=== PATIENT | male | born 1970 | race Caucasian/White ===

== ENCOUNTER 2017-12-19 17:20 | Emergency (ER) | payer OTHER ==
--- NOTE | 2017-12-19 17:21 | PDOC ---
History of Present Illness - General History Source: Patient Exam Limitations: No Limitations - History of Present Illness Initial Comments: 12/19/17 18:10 The patient is a 47 year old male with no significant PMH who presents to the emergency department with diarrhea and right lower quadrant pain today. The patient went to a work trip in [place] for approximately 1 week and came back yesterday. The patient states he was in cities and was eating vegetarian meals at various restaurants. The patient reports he was well through last night then reports the diarrhea began first this morning and had approximately eight loose , watery episodes throughout the day. The patient endorses associated intermittent abdominal cramping. The patient states his abdominal pain is localized in the right lower quadrant and describes it as a sharp pain. The patient states he has been able to tolerate PO intake since the onset of his symptoms. Patient reports mild nausea, but denies any fever, blood in the stool, vomiting , or constipation. Denies chest pain, shortness of breath, headache and dizziness. Denies dysuria, frequency, urgency and hematuria. Allergies: NKA Past surgical history: None reported. Social history: Drinks alcohol 2-3 drinks, approximately 4 times a week. No reported drug or cigarette use. <Stacie Burton - Last Filed: 12/19/17 18:49> <Abhijit Hunter - Last Filed: 12/19/17 18:55> - General Chief Complaint: Pain Stated Complaint: RLQ PAIN Time Seen by Provider: 12/19/17 17:21 Past History <Stacie Burton - Last Filed: 12/19/17 18:49> <Abhijit Hunter - Last Filed: 12/19/17 18:55> - Past Medical History Allergies/Adverse Reactions: Allergies Allergy/AdvReac Type Severity Reaction Status Date / Time No Known Allergies Allergy Verified 12/19/17 17:30 Home Medications: Ambulatory Orders NK [No Known Home Medication] 12/19/17 Review of Systems - Review of Systems Able to Perform ROS?: Yes Comments:: 12/19/17 18:01 CONSTITUTIONAL: Absent: Fever, Chills, Diaphoresis, Generalized Weakness, Malaise, Loss of Appetite HEENT: Absent: Rhinorrhea, Nasal Congestion, Throat Pain, Throat Swelling, Difficulty Swallowing, Mouth Swelling, Ear Pain, Eye Pain, Visual Changes CARDIOVASCULAR: Absent: Chest Pain, Syncope, Palpitations, Irregular Heart Rate, Lightheadedness , Peripheral Edema RESPIRATORY: Absent: Cough, Shortness of Breath, SOB with Exertion, Orthopnea, Wheezing, Stridor, Hemoptysis GASTROINTESTINAL: Absent: Abdominal Distension, Vomiting, Constipation, Melena, Hematochezia Present: Right lower quadrant pain. Diarrhea. Mild nausea. GENITOURINARY: Absent: Dysuria, Frequency, Urgency, Hesitancy, Flank Pain, Genital Pain MUSCULOSKELETAL: Absent: Myalgia, Arthralgia, Joint Swelling, Back pain, Neck Pain SKIN: Absent: Rash, Itching, Pallor HEMEATOLOGIC/IMMUNOLOGIC: Absent: Easy Bleeding, Easy Bruising, Lymphadenopathy, Frequent infections ENDOCRINE: Absent: Unexplained Weight Gain, Unexplained Weight Loss, Heat Intolerance, Cold Intolerance NEUROLOGIC: Absent: Headache, Focal Weakness, Paresthesias, Vertigo, Lightheadedness, Unsteady Gait, Seizure, Mental Status Changes, Incontinence PSYCHIATRIC: Absent: Anxiety, Depression <Stacie Burton - Last Filed: 12/19/17 18:49> *Physical Exam - Vital Signs Last Vital Signs Temp Pulse Resp BP Pulse Ox 99.4 F 101 H 18 124/80 98 12/19/17 17:20 12/19/17 17:20 12/19/17 17:20 12/19/17 17:20 12/19/17 17:20 - Physical Exam Comments: 12/19/17 18:08 GENERAL: The patient is awake, alert, and fully oriented, in no acute distress. HEAD: Normal with no signs of trauma. EYES: Pupils equal, round and reactive to light, extraocular movements intact, sclera anicteric, conjunctiva clear. ENT: Ears normal, nares patent, oropharynx clear without exudates. Moist mucous membranes. NECK: Normal range of motion, supple without lymphadenopathy, JVD, or masses. LUNGS: Breath sounds equal, clear to auscultation bilaterally. No wheezes, and no crackles. HEART: Regular rate and rhythm, normal S1 and S2 without murmur, rub or gallop. ABDOMEN: (+) Focal tenderness at McBurney's point. Negative Hagen's sign. Soft , normoactive bowel sounds. No guarding, no rebound. No masses. EXTREMITIES: Normal range of motion, no edema. No clubbing or cyanosis. No cords , erythema, or tenderness. NEUROLOGICAL: Cranial nerves II through XII grossly intact. Normal speech, normal gait. PSYCH: Normal mood, normal affect. SKIN: Warm, Dry, normal turgor, no rashes or lesions noted. <Stacie Burton - Last Filed: 12/19/17 18:49> ED Treatment Course - LABORATORY CBC & Chemistry Diagram: 12/19/17 18:10 12/19/17 18:10 <Stacie Burton - Last Filed: 12/19/17 18:49> - LABORATORY CBC & Chemistry Diagram: 12/19/17 18:10 12/19/17 18:10 <Abhijit Hunter - Last Filed: 12/19/17 18:55> Medical Decision Making - Medical Decision Making 12/19/17 18:52 47-year-old man with no significant past medical history presents complaining of onset this morning of frequent episodes of loose watery diarrhea without blood. He just got back from his trip to [place], and a vegetarian food which all seem to be quite healthy and fresh. He has intermittent abdominal pain, associated with cramps, the comes in waves. He went to the urgent care center where he was found to have right lower quadrant tenderness and was sent to the ED for "rule out appendicitis". On examination, the bowel sounds are active. The abdomen is soft with focal tenderness in the right lower quadrant. There is no guarding or rebound tenderness. Initial impression is that the history is quite atypical for acute appendicitis but the examination is somewhat concerning given the focal tenderness at McBurney's point. Patient will have CT scan with IV contrast. Oral contrast is not necessary. Laboratory studies reviewed: WBC is normal at 6.6. Hemoglobin is normal. Platelets are normal. Electrolytes are notable for very slight hyponatremia at 134. Patient was given IV normal saline 1 L in preparation for the IV contrast CT scan. At change of shift, 7 PM, CT scan is pending. Patient endorsed to Dr. Yaz Esposito pending CT results and reevaluation of his abdominal examination. Of note , patient has been able to take by mouth fluids all day today without vomiting. Laboratory Results - last 24 hr 12/19/17 12/19/17 18:10 18:10 WBC 6.6 RBC 4.84 Hgb 15.5 Hct 45.3 MCV 93.5 MCH 32.0 MCHC 34.2 RDW 12.1 Plt Count 176 MPV 9.0 Absolute Neuts (auto) 5.2 Neutrophils % 79.0 Lymphocytes % 8.7 Monocytes % 10.1 Eosinophils % 0.5 Basophils % 1.7 Sodium 134 L Potassium 4.8 Chloride 103 Carbon Dioxide 26 Anion Gap 5 L BUN 10 Creatinine 1.0 Creat Clearance w eGFR > 60 Random Glucose 100 Calcium 8.9 Total Bilirubin 0.7 AST 23 ALT 22 Alkaline Phosphatase 57 Total Protein 6.2 L Albumin 3.7 <Abhijit Hunter - Last Filed: 12/19/17 18:55> *DC/Admit/Observation/Transfer - Attestations Scribe Attestion: 12/19/17 18:10 Documentation prepared by Stacie Burton, acting as director of medical services for Abhijit Hunter MD. <Stacie uBrton - Last Filed: 12/19/17 18:49> - Attestations Physician Attestion: 12/19/17 18:54 The scribe's documentation has been prepared under my direction and personally reviewed by me in its entirety. I have confirmed that the note above accurately reflects all work, treatment, procedures, and medical decision- making performed by me. <Abhijit Hunter - Last Filed: 12/19/17 18:55> Diagnosis at time of Disposition: Abdominal pain Qualifiers: Abdominal location: right lower quadrant Qualified Code(s): R10.31 - Right lower quadrant pain - Discharge Dispostion Condition at time of disposition: Stable
[2017-12-19 17:36] VITALS: BP 124/80; PULSE 101; TEMP 99.4; BMI 25.0
[2017-12-19] MEDS ORDERED: SODIUM CHLORIDE 1,000 ML IV STA (18:01)
[2017-12-19 18:32] LABS: BASO % 1.7 % (0-2.0); EOS % 0.5 % (0-4.5); HEMATOCRIT 45.3 % (35.4-49); HEMOGLOBIN 15.5 GM/dl (11.7-16.9); LYMPH % 8.7 % (8-40); MCHC 34.2 g/dl (32.0-35.9); MEAN CELL VOLUME 93.5 fl (80-96); MONO % 10.1 % (3.8-10.2); PLATELET COUNT 176 K/MM3 (134-434); RBC 4.84 M/mm3 (4.00-5.60); RDW 12.1 % (11.9-15.9); WHITE BLOOD COUNT 6.6 K/mm3 (4.0-10.8)
[2017-12-19 18:38] LABS: ALBUMIN 3.7 g/dl (3.5-5.0); ALK PHOS 57 U/L (32-92); ANION GAP 5 (8-16); BILIRUBIN,TOTAL 0.7 mg/dl (0.2-1.0); BLOOD UREA NITROGEN 10 mg/dl (7-18); CALCIUM 8.9 mg/dl (8.4-10.2); CHLORIDE 103 mmol/L (98-107); CO2 26 mmol/L (22-28); GLUCOSE,RANDOM 100 mg/dl (74-106); POTASSIUM 4.8 mmol/L (3.5-5.1); SGOT/AST 23 U/L (10-42); SGPT/ALT 22 U/L (10-40); SODIUM 134 mmol/L (136-145); TOT PROT 6.2 g/dl (6.4-8.3)
--- NOTE | 2017-12-19 20:01 | PDOC ---
*Physical Exam - Vital Signs Last Vital Signs Temp Pulse Resp BP Pulse Ox 99.4 F 101 H 18 124/80 98 12/19/17 17:20 12/19/17 17:20 12/19/17 17:20 12/19/17 17:20 12/19/17 17:20 - Physical Exam HEENT: positive: Scleral Icterus (R) <Stacie Burton - Last Filed: 12/19/17 20:49> - Vital Signs Last Vital Signs Temp Pulse Resp BP Pulse Ox 99.4 F 101 H 18 124/80 98 12/19/17 17:20 12/19/17 17:20 12/19/17 17:20 12/19/17 17:20 12/19/17 17:20 <Yaz Esposito - Last Filed: 12/20/17 04:52> ED Treatment Course - LABORATORY CBC & Chemistry Diagram: 12/19/17 18:10 12/19/17 18:10 - ADDITIONAL ORDERS Additional order review: Laboratory Results 12/19/17 18:10 Sodium 134 L Potassium 4.8 Chloride 103 Carbon Dioxide 26 Anion Gap 5 L BUN 10 Creatinine 1.0 Creat Clearance w eGFR > 60 Random Glucose 100 Calcium 8.9 Total Bilirubin 0.7 AST 23 ALT 22 Alkaline Phosphatase 57 Total Protein 6.2 L Albumin 3.7 12/19/17 18:10 RBC 4.84 MCV 93.5 MCHC 34.2 RDW 12.1 MPV 9.0 Neutrophils % 79.0 Lymphocytes % 8.7 Monocytes % 10.1 Eosinophils % 0.5 Basophils % 1.7 - Medications Given in the ED: ED Medications Discontinued Medications Generic Name Dose Route Start Last Admin Trade Name Freq PRN Reason Stop Dose Admin Sodium Chloride 1,000 mls @ 1,000 mls/hr 12/19/17 18:01 12/19/17 18:20 Normal Saline - IV 12/19/17 19:00 1,000 mls/hr ASDIR STA Administration <Stacie Burton - Last Filed: 12/19/17 20:49> - LABORATORY CBC & Chemistry Diagram: 12/19/17 18:10 12/19/17 18:10 - ADDITIONAL ORDERS Additional order review: Laboratory Results 12/19/17 18:10 Sodium 134 L Potassium 4.8 Chloride 103 Carbon Dioxide 26 Anion Gap 5 L BUN 10 Creatinine 1.0 Creat Clearance w eGFR > 60 Random Glucose 100 Calcium 8.9 Total Bilirubin 0.7 AST 23 ALT 22 Alkaline Phosphatase 57 Total Protein 6.2 L Albumin 3.7 12/19/17 18:10 RBC 4.84 MCV 93.5 MCHC 34.2 RDW 12.1 MPV 9.0 Neutrophils % 79.0 Lymphocytes % 8.7 Monocytes % 10.1 Eosinophils % 0.5 Basophils % 1.7 - Medications Given in the ED: ED Medications Discontinued Medications Generic Name Dose Route Start Last Admin Trade Name Brett PRN Reason Stop Dose Admin Sodium Chloride 1,000 mls @ 1,000 mls/hr 12/19/17 18:01 12/19/17 18:20 Normal Saline - IV 12/19/17 19:00 1,000 mls/hr ASDIR STA Administration <Yaz Esposito - Last Filed: 12/20/17 04:52> Progress Note - Progress Note Progress Note: Documentation has been prepared under my direction and personally reviewed by me in its entirety. I attest that this documented accurately reflects all work, treatment, procedures and medical decision making performed by me. <Yaz Esposito - Last Filed: 12/20/17 04:52> Medical Decision Making - Medical Decision Making 12/19/17 20:50 Imaging: Abdomen and pelvis CT Reported by: Dr. Herrera Findings: The appendix is within normal limits in size. There is no periappendiceal inflammatory changes. No evidence of acute appendicitis. No free air. No obvious gallstones. There is no hydronephrosis. There is no evidence of intestinal obstruction. Urinary bladder is partially decompressed. THere are no bladder calculi. <Stacie Burton - Last Filed: 12/19/17 20:49> - Medical Decision Making Care of this patient received from Dr. Hunter. Patient presented with diarrhea after travel from [place]. He was referred here and had further evaluation because of localized right lower quadrant tenderness. Abdominal/pelvic CT performed and results as noted above: No evidence of acute appendicitis. Clinical presentation most consistent with enterocolitis/traveler's diarrhea. Patient will be treated with Cipro 500 mg twice a day with first dose given here in the emergency room. Meanwhile, patient will drink plenty of fluids and follow-up with his PMD within the next 3-4 days. He should return to the emergency room if he develops fever/vomiting/worsening abdominal pain <Yaz Esposito - Last Filed: 12/20/17 04:52> *DC/Admit/Observation/Transfer <Stacie Burton - Last Filed: 12/19/17 20:49> <Yaz Esposito - Last Filed: 12/20/17 04:52> Diagnosis at time of Disposition: Traveler's diarrhea Abdominal pain Qualifiers: Abdominal location: right lower quadrant Qualified Code(s): R10.31 - Right lower quadrant pain - Discharge Dispostion Disposition: HOME Condition at time of disposition: Stable - Prescriptions Prescriptions: Ciprofloxacin [Cipro -] 500 mg PO Q12H #5 tablet - Patient Instructions Printed Discharge Instructions: Traveler's Diarrhea Additional Instructions: Drink plenty of fluids Cipro 500 mg twice a day to complete a 3 day course Return to ER if you have increased abdominal pain or nausea/vomiting Follow-up with your general medical doctor within the next 5-7 days
[2017-12-19] MEDS ORDERED: CIPROFLOXACIN 500 MG TABLET (RESTRICTED TO ID) PO ONE (20:46)
[2017-12-19] MEDS ORDERED: CIPROFLOXACIN 250 MG TABLET (RESTRICTED TO ID) PO ONE (20:48)
== END 2017-12-19 20:54 | disposition home or self-care (01) ==
LOC: FER 17:20
PROC: 3E0337Z Introduction of Electrolytic and Water Balance Substance into Peripheral Vein, Percutaneous Approach (ICD-10-PCS; principal; 2017-12-19)
DX: R10.31 Right lower quadrant pain (principal)
CPT/HCPCS: 36415; 74177-TC; 80053; 85025; 99282-25; J7030